=== PATIENT | male | born 1940 | race Caucasian/White ===

== ENCOUNTER → 2017-04-22 | Outpatient (REF) | payer OTHER ==
[~2017-04-22] MED LIST: ALDA50TA2 PO; FENO160T10 PO; FERR325T3 PO; GLIM2TA PO; ISOS30TA4 PO; LEVE1INJ5 SC; NADO20TA PO; NITR0.4S14 SL; OMEP20CA3 PO; PRAV40TA2 PO; RANO5TAB PO; TRUL10IN SC; VALS1TAB46 PO
[2017-04-22 14:05] LABS: PERCENT SATURATION 9.7 % (19.7-37.4)
== END ==
LOC: M LAB REF 13:33
PROVIDERS: ATTEND Internal Medicine Medical Oncology
DX: C91.10 Chronic lymphocytic leukemia of B-cell type not having achieved remission (principal)

== ENCOUNTER → 2017-05-08 | Outpatient (CLI) | payer OTHER ==
--- NOTE | 2017-05-08 14:38 | REP ---
ABDOMINAL ULTRASOUND WITH DUPLEX DOPPLER EVALUATION OF PORTAL VASCULATURE: Real-time sonographic evaluation of right upper quadrant performed. The gallbladder wall is upper limits of normal in thickness at 4 mm. No gallstones are seen. There is no evidence of intrahepatic or extrahepatic biliary dilatation, common bile duct measuring 3 mm in diameter. The liver demonstrates diffuse heterogeneous echotexture. No gross liver or pancreatic mass is seen. The pancreas is not optimally seen due to overlying bowel gas. Main portable vein is slightly dilated at 15 mm. The spleen is somewhat enlarged measuring 19.7 cm in length. Kidneys appear normal in size and echotexture, right kidney measuring 10.2 x 5.3 x 5.7 cm and the left kidney 11.2 x 64 x 5.1 cm. There is no hydronephrosis bilaterally. There is a cyst in the upper pole of the right kidney measuring 2.8 x 2.0 x 1.6 cm and a cyst in the lower pole of the left kidney 1.6 x 1.8 x 2.2 cm. The visualized abdominal aorta is normal in caliber with no aneurysm. There is a small amount of fluid in an umbilical hernia, which is not reducible. Real-time ultrasound evaluation and duplex Doppler interrogation of the portal vasculature is performed. There is normal direction of flow in the portal vasculature. Peak velocity in the splenic vein is 13.2 cm/s, and in the main portal vein 16.2 cm/s. Peak systolic velocity in the main hepatic artery is 37.2 cm/s. There are monophasic waveforms seen in the hepatic veins. There is no evidence of portal vein thrombosis. IMPRESSION: Diffusely coarsened echotexture of the liver suggests cirrhosis with no definite liver mass identified. The main portal vein is mildly dilated at 15 mm suggesting some degree of portal hypertension. There is normal direction of flow in the portal veins. Moderate splenomegaly. Umbilical hernia contains fluid and is not reducible. Signed by Quan Lopez MD 05/08/2017 05:12 P
== END ==
LOC: M RAD 10:37
PROVIDERS: ATTEND Internal Medicine Gastroenterology
DX: D64.9 Anemia, unspecified (principal)

== ENCOUNTER 2017-06-29 06:46 | Outpatient (CLI) | payer OTHER ==
[~2017-06-29] VITALS: Ht 170.2 cm; Wt 102.1 kg
[2017-06-29] MEDS ORDERED: NS 1,000 ML IV ONE (07:15)
[2017-06-29] MEDS ORDERED: D5W/0.45% SODIUM CHLORIDE 1,000 ML IV SCH (08:00)
[2017-06-29] MEDS ORDERED: LIDOCAINE 2% INJ 100 MG/5 ML SDV (FOR ANES.) As Ordered ONE (08:29)
[2017-06-29] MEDS ORDERED: PROPOFOL 200 MG/20 ML VIAL As Ordered ONE ×3 (08:29→08:46)
[2017-06-29] MEDS ORDERED: ePHEDrine SULFATE 25 MG/5 ML(5MG/ML) SYRINGE As Ordered ONE ×2 (08:29→09:22)
--- NOTE | 2017-06-29 09:13 | ROOR ---
Patient Name: Sg Gerardo Procedure Date: 06/29/2017 8:14 AM Date of : 1940 Age: 76 Room: [facility] Gender: Male Note Status: Finalized Procedure: Upper GI endoscopy Indications: Iron deficiency anemia Providers: Mando Black MD Referring MD: NICK NORRIS MD Requesting Provider: Medicines: Monitored Anesthesia Care Complications: No immediate complications. Procedure: Pre-Anesthesia Assessment: - Prior to the procedure, a History and Physical was performed, and patient medications and allergies were reviewed. The patient is competent. The risks and benefits of the procedure and the sedation options and risks were discussed with the patient. All questions were answered and informed consent was obtained. Patient identification and proposed procedure were verified by the physician, the nurse and the system integration engineer in the procedure room. Airway Examination: normal oropharyngeal airway and neck mobility. Respiratory Examination: clear to auscultation. CV Examination: normal. Prophylactic Antibiotics: The patient does not require prophylactic antibiotics. Prior Anticoagulants: The patient has taken ibuprofen, last dose was 6 days prior to procedure. ASA Grade Assessment: III - A patient with severe systemic disease. After reviewing the risks and benefits, the patient was deemed in satisfactory condition to undergo the procedure. The anesthesia plan was to use monitored anesthesia care (MAC). Immediately prior to administration of medications, the patient was re-assessed for adequacy to receive sedatives. The heart rate, respiratory rate, oxygen saturations, blood pressure, adequacy of pulmonary ventilation, and response to care were monitored throughout the procedure. The physical status of the patient was re-assessed after the procedure. The Endoscope was introduced through the mouth, and advanced to the second part of duodenum. The upper GI endoscopy was accomplished without difficulty. The patient tolerated the procedure well. Findings: Three columns of non-bleeding grade II varices were found in the lower third of the esophagus,. No stigmata of recent bleeding were evident and no red selene signs were present. Multiple 10 mm sessile polyps with no bleeding and no stigmata of recent bleeding were found in the gastric antrum. The polyp was removed with a cold biopsy forceps. Resection and retrieval were complete. Verification of patient identification for the specimen was done by the physician and nurse using the patient's name, date and medical record number. Estimated blood loss was minimal. Severe portal hypertensive gastropathy was found in the entire examined stomach. Biopsies were taken with a cold forceps for Helicobacter pylori testing. Multiple 8 mm sessile polyps with no bleeding were found in the duodenal bulb. The polyp was removed with a cold biopsy forceps. Resection and retrieval were complete. The second portion of the duodenum was normal. Biopsies for histology were taken with a cold forceps for evaluation of celiac disease. Impression: - Non-bleeding grade II esophageal varices. - Multiple gastric polyps. Resected and retrieved. - Portal hypertensive gastropathy. Biopsied. - Multiple duodenal polyps. Resected and retrieved. - Normal second portion of the duodenum. Biopsied. Recommendation: - Patient has a contact number available for emergencies. The signs and symptoms of potential delayed complications were discussed with the patient. Return to normal activities tomorrow. Written discharge instructions were provided to the patient. - Resume previous diet. - Continue present medications. - Await pathology results. - Continue present medications. - Cipro (ciprofloxacin) 500 mg PO BID for 5 days. - To start on beta natanael with dosage titrated by the heart rate in clinic visit. - Return to GI clinic as previously scheduled on 07/08/2017 at 11:00 AM. - Return to primary care physician. Mando Black MD Mando Black MD 06/29/2017 9:13:38 AM This report has been signed electronically. Number of Addenda: 0 Note Initiated On: 06/29/2017 8:14 AM Estimated Blood Loss: Estimated blood loss was minimal.
--- NOTE | 2017-06-29 09:19 | ROOR ---
Patient Name: Sg Gerardo Procedure Date: 06/29/2017 8:16 AM Date of : 1940 Age: 76 Room: [facility] Gender: Male Note Status: Finalized Procedure: Colonoscopy Indications: Iron deficiency anemia Providers: Mando Black MD Referring MD: NICK NORRIS MD Requesting Provider: Medicines: Monitored Anesthesia Care Complications: No immediate complications. Procedure: Pre-Anesthesia Assessment: - Prior to the procedure, a History and Physical was performed, and patient medications and allergies were reviewed. The patient is competent. The risks and benefits of the procedure and the sedation options and risks were discussed with the patient. All questions were answered and informed consent was obtained. Patient identification and proposed procedure were verified by the physician, the nurse and the fire equipment inspector in the procedure room. Mental Status Examination: alert and oriented. Airway Examination: normal oropharyngeal airway and neck mobility. Respiratory Examination: clear to auscultation. CV Examination: normal. Prophylactic Antibiotics: The patient does not require prophylactic antibiotics. Prior Anticoagulants: The patient has taken ibuprofen, last dose was 1 day prior to procedure. ASA Grade Assessment: III - A patient with severe systemic disease. After reviewing the risks and benefits, the patient was deemed in satisfactory condition to undergo the procedure. The anesthesia plan was to use monitored anesthesia care (MAC). Immediately prior to administration of medications, the patient was re-assessed for adequacy to receive sedatives. The heart rate, respiratory rate, oxygen saturations, blood pressure, adequacy of pulmonary ventilation, and response to care were monitored throughout the procedure. The physical status of the patient was re-assessed after the procedure. The Colonoscope was introduced through the anus and advanced to the terminal ileum, with identification of the appendiceal orifice and IC valve. The colonoscopy was performed without difficulty. The patient tolerated the procedure well. The quality of the bowel preparation was good. The terminal ileum, ileocecal valve, appendiceal orifice, and rectum were photographed. Scope insertion time was 4 minutes. Scope withdrawal time was 12 minutes. The total duration of the procedure was 16 minutes. Findings: The perianal and digital rectal examinations were normal. The terminal ileum appeared normal. A diffuse area of granular mucosa was found in the cecum. Biopsies were taken with a cold forceps for histology. Verification of patient identification for the specimen was done by the physician and nurse using the patient's name, date and medical record number. Estimated blood loss was minimal. Three sessile polyps were found in the ascending colon. The polyps were 4 to 5 mm in size. These polyps were removed with a jumbo cold forceps. Resection and retrieval were complete. Three sessile polyps were found in the transverse colon. The polyps were 4 to 6 mm in size. These polyps were removed with a jumbo cold forceps. Resection and retrieval were complete. A 3 mm polyp was found in the sigmoid colon. The polyp was sessile. The polyp was removed with a jumbo cold forceps. Resection and retrieval were complete. Anal papilla(e) were hypertrophied. Non-bleeding external and internal hemorrhoids were found during retroflexion. The hemorrhoids were large. Impression: - The examined portion of the ileum was normal. - Granularity in the cecum. Biopsied. - Three 4 to 5 mm polyps in the ascending colon, removed with a jumbo cold forceps. Resected and retrieved. - Three 4 to 6 mm polyps in the transverse colon, removed with a jumbo cold forceps. Resected and retrieved. - One 3 mm polyp in the sigmoid colon, removed with a jumbo cold forceps. Resected and retrieved. - Anal papilla(e) were hypertrophied. - Non-bleeding external and internal hemorrhoids. Recommendation: - Patient has a contact number available for emergencies. The signs and symptoms of potential delayed complications were discussed with the patient. Return to normal activities tomorrow. Written discharge instructions were provided to the patient. - Resume previous diet. - Continue present medications. - Await pathology results. - Repeat colonoscopy in 1 year for surveillance based on pathology results. - Return to GI clinic as previously scheduled on 07/08/2017 at 11:00 AM. - Return to primary care physician. Mando Black MD Mando Black MD 06/29/2017 9:19:19 AM This report has been signed electronically. Number of Addenda: 0 Note Initiated On: 06/29/2017 8:16 AM Estimated Blood Loss: Estimated blood loss was minimal.
[2017-06-29 09:35] VITALS: BP 108/78
== END 2017-06-29 09:51 | disposition home or self-care (01) ==
LOC: M OPP 06:46
PROVIDERS: ATTEND Internal Medicine Gastroenterology
DX: D50.9 Iron deficiency anemia, unspecified (principal); K62.5 Hemorrhage of anus and rectum; D12.2 Benign neoplasm of ascending colon; D12.3 Benign neoplasm of transverse colon; D12.5 Benign neoplasm of sigmoid colon; K64.4 Residual hemorrhoidal skin tags; K64.8 Other hemorrhoids; K63.89 Other specified diseases of intestine; I85.00 Esophageal varices without bleeding; K31.7 Polyp of stomach and duodenum; K76.6 Portal hypertension; K31.89 Other diseases of stomach and duodenum; I25.10 Atherosclerotic heart disease of native coronary artery without angina pectoris; Z95.5 Presence of coronary angioplasty implant and graft; I25.2 Old myocardial infarction; I10 Essential (primary) hypertension; E78.5 Hyperlipidemia, unspecified; E11.9 Type 2 diabetes mellitus without complications; Z85.6 Personal history of leukemia; Z92.21 Personal history of antineoplastic chemotherapy; M19.90 Unspecified osteoarthritis, unspecified site; F03.90 Unspecified dementia, unspecified severity, without behavioral disturbance, psychotic disturbance, mood disturbance, and anxiety; Z87.891 Personal history of nicotine dependence; Z79.4 Long term (current) use of insulin; Z79.899 Other long term (current) drug therapy

== ENCOUNTER → 2017-08-24 | Outpatient (CLI) | payer OTHER ==
[2017-08-24 13:46] LABS: MEAN CORPUSCULAR HEMOGLOBIN 31.5 pg (27.0-33.0); MEAN CORPUSCULAR HGB CONC 32.7 g/dl (32.0-36.5); MEAN CORPUSCULAR VOLUME 96.2 fl (80.0-96.0); RED CELL DISTRIBUTION WIDTH 14.5 % (11.5-14.5)
[2017-08-24 13:58] LABS: ADD MANUAL DIFFER YES; BLASTS POS FLAG; DIFF SLIDE NUMBER 281; PLATELET COUNT, AUTOMATED 84 10^3/uL (150-450); PLT CLUMPS? POS FLAG; POS COUNT POS FLAG; POSITIVE DIFF POS FLAG; POSITIVE MORPH POS FLAG; WBC SCAT POS FLAG; WHITE BLOOD COUNT 109.1 10^3/uL (4.0-10.0)
[2017-08-24 14:15] LABS: CREATININE FOR GFR 2.04 MG/DL (0.70-1.30); PERCENT SATURATION 22.1 % (19.7-50.0)
[2017-08-24 14:18] LABS: POIKILOCYTOSIS 1+
[2017-08-24 14:19] LABS: PLATELET F 81
== END ==
LOC: M LAB 13:04
PROVIDERS: ATTEND Internal Medicine Gastroenterology
DX: D50.9 Iron deficiency anemia, unspecified (principal)

== ENCOUNTER → 2017-10-22 | Outpatient (REF) | payer OTHER ==
[2017-10-22 14:54] LABS: FERRITIN 23 NG/ML (26-388); IRON (FE) 101 UG/DL (65-175); PERCENT SATURATION 21.6 % (19.7-50.0); TOTAL IRON BINDING CAPACITY 467 UG/DL (250-450)
== END ==
LOC: M LAB REF 13:57
DX: C91.10 Chronic lymphocytic leukemia of B-cell type not having achieved remission (principal)
CPT/HCPCS: 83550

== ENCOUNTER → 2018-02-05 | Outpatient (REF) | payer OTHER ==
[2018-02-05 12:20] LABS: INR 1.22; PROTHROMBIN TIME 15.6 SECONDS (12.4-14.5)
[2018-02-05 12:21] LABS: PARTIAL THROMBOPLASTIN TIME 30.2 SECONDS (26.8-37.9)
== END ==
LOC: M LAB REF 11:59
DX: C91.90 Lymphoid leukemia, unspecified not having achieved remission (principal); K76.9 Liver disease, unspecified
CPT/HCPCS: 85610

== ENCOUNTER → 2018-04-06 | Outpatient (CLI) | payer OTHER | LOC: M RADPRO 11:01 | DX: R18.8 Other ascites (principal); Z95.5 Presence of coronary angioplasty implant and graft; Z79.4 Long term (current) use of insulin; Z79.899 Other long term (current) drug therapy | CPT/HCPCS: 49083 ==

== ENCOUNTER → 2018-04-16 | Outpatient (CLI) | payer OTHER ==
[2018-04-16 09:44] LABS: TYPE AND SCREEN 1
[2018-04-16 14:01] LABS: BF MONONUCLEAR CELL % 88.5 % (0-0); BF POLYMORPHONUCLEAR CELL % 11.5 % (0-0); RBC BODY FLUID 5 10^3/uL (<2); WBC BODY FLUID 356 /uL (0-10)
[2018-04-16 14:05] LABS: APPEARANCE, BODY FLUID CLEAR (CLEAR); ASCITES FL COLOR YELLOW (COLORLESS); BF DIFF IF INDICATED? YES (NO); SOURCE, BODY FLUID ASCITES
[2018-04-16 14:22] LABS: SOURCE, BODY FLUID ALBUMIN ASCITES; SOURCE, BODY FLUID TOT PROTEIN ASCITES; TOTAL PROTEIN, BODY FLUID 1.4 G/DL (NOT ESTABLISHED)
[2018-04-16 15:50] LABS: LDH, BODY FLUID 57 U/L (NOT ESTABLISHED); SOURCE, BODY FLUID LDH ASCITES
== END ==
LOC: M RADPRO 12:07
DX: K76.6 Portal hypertension (principal); Z79.4 Long term (current) use of insulin; Z79.899 Other long term (current) drug therapy
CPT/HCPCS: 49083

== ENCOUNTER → 2018-06-22 | Outpatient (CLI) | payer OTHER ==
[2018-06-22 13:17] LABS: TYPE AND SCREEN 1
[2018-06-22 14:09] LABS: TYPE AND SCREEN 1
[2018-06-22 14:41] LABS: BF MONONUCLEAR CELL % 84.1 % (0-0); BF POLYMORPHONUCLEAR CELL % 15.9 % (0-0); RBC BODY FLUID 16 10^3/uL (<2); WBC BODY FLUID 1251 /uL (0-10)
[2018-06-22 14:43] LABS: APPEARANCE, BODY FLUID HAZY (CLEAR); ASCITES FL COLOR AMBER (COLORLESS); SOURCE, BODY FLUID ASCITES
[2018-06-22 14:44] LABS: BF DIFF IF INDICATED? YES (NO)
[2018-06-22 15:19] LABS: SOURCE, BODY FLUID ALBUMIN ASCITES; SOURCE, BODY FLUID TOT PROTEIN ASCITES
== END ==
LOC: M RADPRO 12:24
DX: K74.69 Other cirrhosis of liver (principal); I12.9 Hypertensive chronic kidney disease with stage 1 through stage 4 chronic kidney disease, or unspecified chronic kidney disease; E78.00 Pure hypercholesterolemia, unspecified; I25.2 Old myocardial infarction; N18.3 Chronic kidney disease, stage 3 (moderate); E11.9 Type 2 diabetes mellitus without complications; Z85.6 Personal history of leukemia; Z79.4 Long term (current) use of insulin; Z79.899 Other long term (current) drug therapy; Z87.891 Personal history of nicotine dependence
CPT/HCPCS: 49083

== ENCOUNTER → 2018-07-16 | Outpatient (CLI) | payer OTHER ==
[2018-07-16 14:07] LABS: TYPE AND SCREEN 1
[2018-07-16 14:17] LABS: HEMATOCRIT 34.1 % (42.0-52.0); HEMOGLOBIN 10.9 g/dl (13.5-17.5)
[2018-07-16 14:35] LABS: SODIUM,RANDOM URINE < 10 MEQ/L
[2018-07-16 14:38] LABS: ANION GAP 9 MEQ/L (8-16); BLOOD UREA NITROGEN 39 MG/DL (7-18); CARBON DIOXIDE LEVEL 28 MEQ/L (21-32); CHLORIDE LEVEL 103 MEQ/L (98-107); CREATININE FOR GFR 2.08 MG/DL (0.70-1.30); GLOMERULAR FILTRATION RATE 33.1 (>42); GLUCOSE, FASTING 195 MG/DL (70-100); POTASSIUM SERUM 4.1 MEQ/L (3.5-5.1); SODIUM LEVEL 140 MEQ/L (136-145)
[2018-07-16 14:52] LABS: MEAN CORPUSCULAR VOLUME 96.9 fl (80.0-96.0); PLATELET COUNT, AUTOMATED 132 10^3/uL (150-450); RED BLOOD COUNT 3.52 10^6/uL (4.30-6.10)
[2018-07-16 14:58] LABS: POS COUNT POS FLAG; POSITIVE DIFF POS FLAG; POSITIVE MORPH POS FLAG
[2018-07-16 14:59] LABS: ADD MANUAL DIFFER YES; DIFF SLIDE NUMBER 274; WHITE BLOOD COUNT 100.3 10^3/uL (4.0-10.0)
[2018-07-16 15:12] LABS: ATYPICAL LYMPH 70 % (0-5); BASOPHILS 1 % (0-4); LYMPHOCYTES 18 % (16-52); MONOCYTES 4 % (0-8); NEUTROPHILS 7 % (35-75); PLATELET ESTIMATE DECREASED (NORMAL)
[2018-07-16 15:13] LABS: SMUDGE CELLS 1+
[2018-07-16 15:14] LABS: SOURCE, BODY FLUID ALBUMIN ASCITES; SOURCE, BODY FLUID TOT PROTEIN ASCITES; TOTAL PROTEIN, BODY FLUID 1.6 G/DL (NOT ESTABLISHED)
[2018-07-16 15:30] LABS: APPEARANCE, BODY FLUID HAZY (CLEAR); ASCITES FL COLOR AMBER (COLORLESS); RBC BODY FLUID 866 10^3/uL (<2); SOURCE, BODY FLUID ASCITES; WBC BODY FLUID 902 /uL (0-10)
[2018-07-16 15:31] LABS: BF DIFF IF INDICATED? YES (NO)
== END ==
LOC: M RADPRO 12:50
DX: K74.69 Other cirrhosis of liver (principal); Z79.899 Other long term (current) drug therapy
CPT/HCPCS: 49083

== ENCOUNTER → 2018-07-29 | Outpatient (CLI) | payer OTHER ==
[2018-07-29 09:55] LABS: TYPE AND SCREEN 1
== END ==
LOC: M RADPRO 10:56
DX: K74.69 Other cirrhosis of liver (principal); Z79.899 Other long term (current) drug therapy
CPT/HCPCS: 49083

== ENCOUNTER → 2018-08-05 | Outpatient (CLI) | payer OTHER ==
[2018-08-05 09:45] LABS: TYPE AND SCREEN 1
[2018-08-05 11:59] LABS: TYPE AND SCREEN 1
== END ==
LOC: M RADPRO 11:30
DX: K74.69 Other cirrhosis of liver (principal)
CPT/HCPCS: 49083

== ENCOUNTER → 2018-08-12 | Outpatient (CLI) | payer OTHER ==
[2018-08-12 08:41] LABS: TYPE AND SCREEN 1
[2018-08-12 10:52] LABS: TYPE AND SCREEN 1
[2018-08-18 09:11] LABS: TYPE AND SCREEN 1
== END ==
LOC: M RADPRO 09:54
DX: K74.69 Other cirrhosis of liver (principal); Z79.899 Other long term (current) drug therapy
CPT/HCPCS: 49083

== ENCOUNTER → 2018-08-18 | Outpatient (CLI) | payer OTHER | LOC: M RADPRO 10:00 | DX: K74.69 Other cirrhosis of liver (principal); Z79.899 Other long term (current) drug therapy | CPT/HCPCS: 49083 ==

== ENCOUNTER → 2018-08-23 | Outpatient (CLI) | payer OTHER ==
[2018-08-23 14:09] LABS: ALBUMIN 3.2 GM/DL (3.2-5.2); ALBUMIN/GLOBULIN RATIO 1.45 (1.00-1.93); ALKALINE PHOSPHATASE 78 U/L (45-117); ALT/SGPT 18 U/L (12-78); ANION GAP 5 MEQ/L (8-16); AST/SGOT 30 U/L (7-37); BILIRUBIN,DIRECT 0.6 MG/DL (0.0-0.2); BILIRUBIN,TOTAL 1.2 MG/DL (0.2-1.0); BLOOD UREA NITROGEN 40 MG/DL (7-18); CALCIUM LEVEL 8.5 MG/DL (8.8-10.2); CARBON DIOXIDE LEVEL 29 MEQ/L (21-32); CHLORIDE LEVEL 105 MEQ/L (98-107); CREATININE FOR GFR 2.57 MG/DL (0.70-1.30); GLUCOSE, FASTING 111 MG/DL (70-100); MAGNESIUM LEVEL 2.5 MG/DL (1.8-2.4); PHOSPHORUS LEVEL 3.7 MG/DL (2.5-4.9); POTASSIUM SERUM 4.4 MEQ/L (3.5-5.1); SODIUM LEVEL 139 MEQ/L (136-145); TOTAL PROTEIN 5.4 GM/DL (6.4-8.2)
== END ==
LOC: M LAB 13:02
DX: K74.69 Other cirrhosis of liver (principal); R18.8 Other ascites
CPT/HCPCS: 83735

== ENCOUNTER → 2018-09-03 | Outpatient (CLI) | payer OTHER ==
[2018-09-03 09:45] LABS: TYPE AND SCREEN 1
[2018-09-03 13:32] LABS: ANION GAP 5 MEQ/L (8-16); BLOOD UREA NITROGEN 38 MG/DL (7-18); CALCIUM LEVEL 8.6 MG/DL (8.8-10.2); CARBON DIOXIDE LEVEL 29 MEQ/L (21-32); CHLORIDE LEVEL 106 MEQ/L (98-107); CREATININE FOR GFR 2.25 MG/DL (0.70-1.30); GLOMERULAR FILTRATION RATE 30.3 (>42); GLUCOSE, FASTING 139 MG/DL (70-100); POTASSIUM SERUM 4.6 MEQ/L (3.5-5.1); SODIUM LEVEL 140 MEQ/L (136-145)
== END ==
LOC: M RADPRO 12:31
DX: K74.69 Other cirrhosis of liver (principal); R18.8 Other ascites; Z79.899 Other long term (current) drug therapy
CPT/HCPCS: 49083

== ENCOUNTER → 2018-09-15 | Outpatient (CLI) | payer OTHER ==
[~2018-09-15] MED LIST changes: +BACI50OI TOP; +CIPR500T3 PO; +GLIM1TAB PO; +LACT10SO29 PO; +LASI20TA PO; +LISI10TA4; +PROP20TA72; +SPIR50TA4
[2018-09-15 10:03] LABS: HEMATOCRIT 32.1 % (42.0-52.0); MEAN CORPUSCULAR HEMOGLOBIN 29.5 pg (27.0-33.0); MEAN CORPUSCULAR HGB CONC 31.2 g/dl (32.0-36.5); MEAN CORPUSCULAR VOLUME 94.7 fl (80.0-96.0); PLATELET COUNT, AUTOMATED 158 10^3/uL (150-450); RED BLOOD COUNT 3.39 10^6/uL (4.30-6.10)
[2018-09-15 10:16] LABS: INR 1.29; PROTHROMBIN TIME 16.3 SECONDS (12.1-14.4)
[2018-09-15 10:17] LABS: PARTIAL THROMBOPLASTIN TIME 30.8 SECONDS (25.4-37.6)
[2018-09-15 11:20] LABS: ATYPICAL LYMPH 20 % (0-5); LYMPHOCYTES 69 % (16-52); NEUTROPHILS 11 % (35-75); PLATELET ESTIMATE NORMAL (NORMAL)
[2018-09-15 11:21] LABS: WHITE BLOOD COUNT 142.6 10^3/uL (4.0-10.0)
[2018-09-15 12:05] LABS: ALBUMIN 2.5 GM/DL (3.2-5.2); BILIRUBIN,DIRECT 0.8 MG/DL (0.0-0.2); BILIRUBIN,TOTAL 1.4 MG/DL (0.2-1.0); CREATININE FOR GFR 3.99 MG/DL (0.70-1.30); FOLATE 6.3 NG/ML; GLOMERULAR FILTRATION RATE 15.6 (>42); PERCENT SATURATION 35.4 % (19.7-50.0); POTASSIUM SERUM 4.8 MEQ/L (3.5-5.1)
--- NOTE | 2018-09-15 20:33 | REP ---
Ultrasound-guided paracentesis The procedure was performed under the direct supervision of Dr. Centeno. The risks and benefits of the procedure were explained to the patient and informed consent was obtained. The largest pocket of fluid was localized in the left flank using ultrasound guidance. The skin was prepped and draped in a sterile fashion. 1% lidocaine was used as a local anesthetic. An 8-Palauan multi side-hole catheter was inserted using trocar technique. 10,500 ml of minal colored fluid was withdrawn and discarded. The patient tolerated the procedure well and there were no immediate complications. After the appropriate amount of monitored convalescence the patient was discharged from the department. Reviewed by CHELSEA Miranda 09/15/2018 04:34 P Electronically Signed by Natan Centeno MD 09/15/2018 08:23 P
== END ==
LOC: M LAB 09:18
PROVIDERS: ATTEND Internal Medicine Gastroenterology
DX: R18.8 Other ascites (principal); K74.69 Other cirrhosis of liver; Z79.899 Other long term (current) drug therapy
CPT/HCPCS: 36415; 49083; 80048; 80076; 82607; 82728; 82746; 83550; 85025; 85610; 85730; P9047

== ENCOUNTER 2018-09-24 14:27 | Emergency (ER) | payer OTHER ==
[~2018-09-24] VITALS: Ht 170.2 cm; Wt 94.0 kg
[~2018-09-24 14:27] MED LIST changes: -BACI50OI TOP; -LACT10SO29 PO; -LASI20TA PO; +LASI20TA3 PO; -LISI10TA4; -PROP20TA72; -SPIR50TA4
[2018-09-24] MEDS ORDERED: LACT10SO29 PO (15:15)
[2018-09-24] MEDS ORDERED: SPIR50TA4 (15:15)
[2018-09-24] MEDS ORDERED: LISI10TA4 (15:15)
[2018-09-24] MEDS ORDERED: PROP20TA72 (15:15)
[2018-09-24] MEDS ORDERED: BACI50OI TOP (15:54)
[2018-09-24 16:58] VITALS: BP 109/53
[2018-10-07] MEDS ORDERED: KION15SU PO (11:37)
== END 2018-09-24 17:00 | disposition home or self-care (01) ==
LOC: M ED 14:27
DX: R18.8 Other ascites (principal); K42.0 Umbilical hernia with obstruction, without gangrene; E11.9 Type 2 diabetes mellitus without complications; I12.9 Hypertensive chronic kidney disease with stage 1 through stage 4 chronic kidney disease, or unspecified chronic kidney disease; N18.3 Chronic kidney disease, stage 3 (moderate); C91.10 Chronic lymphocytic leukemia of B-cell type not having achieved remission; I25.10 Atherosclerotic heart disease of native coronary artery without angina pectoris; E78.5 Hyperlipidemia, unspecified; Z79.899 Other long term (current) drug therapy
CPT/HCPCS: 36415; 49083; 80048; 87070; 87077; 87186; 87205; 89051; 96365; 99283; P9047

== ENCOUNTER → 2018-10-01 | Outpatient (CLI) | payer MEDICARE, OTHER ==
[~2018-10-01] MED LIST changes: +BACI50OI TOP; +KION15SU PO; +LACT10SO29 PO; +LISI10TA4; +PROP20TA72; +SPIR50TA4
[2018-10-01 14:13] LABS: CALCIUM LEVEL 8.4 MG/DL (8.8-10.2); CREATININE FOR GFR 4.35 MG/DL (0.70-1.30); GLOMERULAR FILTRATION RATE 14.1 (>42); POTASSIUM SERUM 6.1 MEQ/L (3.5-5.1)
== END ==
LOC: M LAB 12:58
PROVIDERS: ATTEND Internal Medicine Gastroenterology
DX: K74.69 Other cirrhosis of liver (principal); R18.8 Other ascites; Z79.899 Other long term (current) drug therapy
CPT/HCPCS: 36415; 49083; 80048; P9047

== ENCOUNTER → 2018-10-15 | Outpatient (CLI) | payer MEDICARE ==
[2018-10-15 11:41] LABS: CALCIUM LEVEL 8.1 MG/DL (8.8-10.2); CREATININE FOR GFR 2.03 MG/DL (0.70-1.30); GLOMERULAR FILTRATION RATE 34.1 (>42); POTASSIUM SERUM 5.1 MEQ/L (3.5-5.1)
--- NOTE | 2018-10-15 19:56 | REP ---
Ultrasound-guided paracentesis The procedure was performed under the direct supervision of Dr. Centeno. The risks and benefits of the procedure were explained to the patient and informed consent was obtained. The largest pocket of fluid was localized in the left lower quadrant using ultrasound guidance. The skin was prepped and draped in a sterile fashion. 1% lidocaine was used as a local anesthetic. An 8-Kosovan multi side-hole catheter was inserted using trocar technique. 6200 ml of minal colored fluid was withdrawn and discarded. The patient tolerated the procedure well and there were no immediate complications. After the appropriate amount of monitored convalescence the patient was discharged from the department. Reviewed by CHELSEA Miranda 10/15/2018 05:05 P Electronically Signed by Natan Centeno MD 10/15/2018 07:47 P
== END ==
LOC: M RADPRO 10:32
PROVIDERS: ATTEND Internal Medicine Gastroenterology
DX: R18.8 Other ascites (principal); K74.69 Other cirrhosis of liver
CPT/HCPCS: 80048; 96365; P9047

== ENCOUNTER → 2018-10-21 | Outpatient (CLI) | payer MEDICARE ==
[2018-10-21 16:14] LABS: CALCIUM LEVEL 8.2 MG/DL (8.8-10.2); CREATININE FOR GFR 2.04 MG/DL (0.70-1.30); GLOMERULAR FILTRATION RATE 33.9 (>42); POTASSIUM SERUM 5.2 MEQ/L (3.5-5.1)
--- NOTE | 2018-10-22 10:52 | REP ---
Ultrasound-guided paracentesis The procedure was performed under the direct supervision of Dr. Centeno. The risks and benefits of the procedure were explained to the patient and informed consent was obtained. The largest pocket of fluid was localized in the right lower quadrant using ultrasound guidance. The skin was prepped and draped in a sterile fashion. 1% lidocaine was used as a local anesthetic. An 8-Japanese multi side-hole catheter was inserted using trocar technique. 4750 ml of light red colored fluid was withdrawn and discarded. The patient tolerated the procedure well and there were no immediate complications. After the appropriate amount of monitored convalescence the patient was discharged from the department. Reviewed by CHELSEA Miranda 10/22/2018 10:17 A Electronically Signed by Natan Centeno MD 10/22/2018 10:43 A
== END ==
LOC: M RADPRO 11:57
PROVIDERS: ATTEND Internal Medicine Gastroenterology
DX: K74.69 Other cirrhosis of liver (principal); R18.8 Other ascites; Z79.899 Other long term (current) drug therapy
CPT/HCPCS: 49083; 80048; P9047

== ENCOUNTER → 2018-10-29 | Outpatient (CLI) | payer MEDICARE ==
[2018-10-29 14:05] LABS: CALCIUM LEVEL 8.1 MG/DL (8.8-10.2); CREATININE FOR GFR 2.02 MG/DL (0.70-1.30); GLOMERULAR FILTRATION RATE 34.3 (>42); POTASSIUM SERUM 4.8 MEQ/L (3.5-5.1)
--- NOTE | 2018-10-29 16:14 | REP ---
Ultrasound-guided paracentesis The procedure was performed under the direct supervision of Dr. Lopez. The risks and benefits of the procedure were explained to the patient and informed consent was obtained. The largest pocket of fluid was localized in the left flank using ultrasound guidance. The skin was prepped and draped in a sterile fashion. 1% lidocaine was used as a local anesthetic. An 8-Faroese multi side-hole catheter was inserted using trocar technique. 5700 ml of [place] colored fluid was withdrawn and discarded. The patient tolerated the procedure well and there were no immediate complications. After the appropriate amount of monitored convalescence the patient was discharged from the department. Reviewed by CHELSEA Miranda 10/29/2018 03:42 P Electronically Signed by Quan Lopez MD 10/29/2018 04:05 P
== END ==
LOC: M RADPRO 12:33
PROVIDERS: ATTEND Internal Medicine Gastroenterology
DX: K74.69 Other cirrhosis of liver (principal); R18.8 Other ascites
CPT/HCPCS: 49083; 80048; 96365; P9047

== ENCOUNTER → 2018-11-05 | Outpatient (CLI) | payer MEDICARE ==
[2018-11-05 14:12] LABS: CREATININE FOR GFR 2.14 MG/DL (0.70-1.30); GLOMERULAR FILTRATION RATE 32.1 (>42); POTASSIUM SERUM 5.4 MEQ/L (3.5-5.1)
--- NOTE | 2018-11-05 17:59 | REP ---
Ultrasound-guided paracentesis The procedure was performed under the direct supervision of Dr. Centeno. The risks and benefits of the procedure were explained to the patient and informed consent was obtained. The largest pocket of fluid was localized in the left flank using ultrasound guidance. The skin was prepped and draped in a sterile fashion. 1% lidocaine was used as a local anesthetic. An 8-Maldivian multi side-hole catheter was inserted using trocar technique. 5800 ml of minal colored fluid was withdrawn and discarded. The patient tolerated the procedure well and there were no immediate complications. After the appropriate amount of monitored convalescence the patient was discharged from the department. Reviewed by CHELSEA Miranda 11/05/2018 03:53 P Electronically Signed by Natan Centeno MD 11/05/2018 05:49 P
== END ==
LOC: M RADPRO 12:57
PROVIDERS: ATTEND Internal Medicine Gastroenterology
DX: K74.69 Other cirrhosis of liver (principal); R18.8 Other ascites; Z79.84 Long term (current) use of oral hypoglycemic drugs; Z79.899 Other long term (current) drug therapy
CPT/HCPCS: 49083; 80048; 96365; P9047

== ENCOUNTER → 2018-11-12 | Outpatient (CLI) | payer MEDICARE ==
[2018-11-12 13:24] LABS: CALCIUM LEVEL 7.9 MG/DL (8.8-10.2); CREATININE FOR GFR 1.8 MG/DL (0.70-1.30); GLOMERULAR FILTRATION RATE 39.1 (>42); POTASSIUM SERUM 4.3 MEQ/L (3.5-5.1)
--- NOTE | 2018-11-12 16:32 | REP ---
Ultrasound-guided paracentesis The procedure was performed under the direct supervision of Dr. Lopez. The risks and benefits of the procedure were explained to the patient and informed consent was obtained. The largest pocket of fluid was localized in the right flank using ultrasound guidance. The skin was prepped and draped in a sterile fashion. 1% lidocaine was used as a local anesthetic. An 8-Wolof multi side-hole catheter was inserted using trocar technique. 4500 ml of low viscosity red colored fluid was withdrawn and discarded. The patient tolerated the procedure well and there were no immediate complications. After the appropriate amount of monitored convalescence the patient was discharged from the department. Reviewed by CHELSEA Miranda 11/12/2018 03:31 P Electronically Signed by Quan Lopez MD 11/12/2018 04:23 P
== END ==
LOC: M RADPRO 12:38
PROVIDERS: ATTEND Internal Medicine Gastroenterology
DX: K74.69 Other cirrhosis of liver (principal); R18.8 Other ascites; Z79.899 Other long term (current) drug therapy
CPT/HCPCS: 49083; 80048; 96365; P9047

== ENCOUNTER → 2018-11-19 | Outpatient (CLI) | payer MEDICARE ==
[2018-11-19 13:58] LABS: CALCIUM LEVEL 8.4 MG/DL (8.8-10.2); CREATININE FOR GFR 1.96 MG/DL (0.70-1.30); GLOMERULAR FILTRATION RATE 35.5 (>42); POTASSIUM SERUM 4.6 MEQ/L (3.5-5.1)
--- NOTE | 2018-12-01 10:30 | REP ---
ULTRASOUND-GUIDED PARACENTESIS, 11/19/2018: CLINICAL HISTORY: Ascites. TECHNIQUE: Ultrasound survey of the abdomen was done prospectively in this patient for paracentesis. FINDINGS: Procedure was discussed with the patient along with the diagnostic benefits, risks of bleeding, infection, pain, bowel injury, and unsuccessful procedure as possibilities,. He understands, and consent was obtained. We performed a formal time-out procedure. Under ultrasound guidance, the skin was marked in the right lateral midabdomen for the patient. A standard ChloraPrep scrub was performed; infiltration of 4 mL of 1% lidocaine with a 25-gauge needle was utilized. A simple skin colette made with a #11 blade at the site of needle insertion. Thereafter, a paracentesis catheter was advanced over the 14-gauge needle which was inserted with trocar technique. Abundant fluid obtained and the catheter advanced over the needle. A total of 6 liters of straw-colored fluid was obtained. No gross evidence for blood or cloudy/debris-laden fluid. Patient tolerated the procedure well. After appropriate monitored convalescence, patient was discharged home. THOMAS
== END ==
LOC: M RADPRO 12:59
PROVIDERS: ATTEND Internal Medicine Gastroenterology
DX: R18.8 Other ascites (principal); Z79.899 Other long term (current) drug therapy
CPT/HCPCS: 49083; 80048; 96365; P9047

== ENCOUNTER → 2018-11-29 | Outpatient (CLI) | payer MEDICARE ==
[~2018-11-29] MED LIST changes: -GLIM2TA PO; +GLIM2TAB29 PO; +LIDOCAINE 2% MDV 20 ML VIAL As Ordered ONE; -VALS1TAB46 PO; +VALS1TAB66 PO
--- NOTE | 2018-12-29 07:15 | REPIR ---
DATE OF PROCEDURE: 11/29/2018 ATTENDING SURGEON: Mirza Kessler MD ANESTHESIA ATTENDING: Dayna Pickard and Nellie Corey PREOPERATIVE DIAGNOSES: Cirrhosis. Chronic lymphocytic leukemia. Refractory ascites. Diabetes mellitus. Coronary artery disease. Hypertension. POSTOPERATIVE DIAGNOSES: Cirrhosis. Chronic lymphocytic leukemia. Refractory ascites. Diabetes mellitus. Coronary artery disease. Hypertension. PROCEDURE: Ultrasound-guided right peritoneal cavity cannulation. Fluoroscopic guided right peritoneal cavity drainage catheter placement. INDICATION: Patient is a 38-year-old male with refractory ascites who will undergo placement of a peritoneal catheter for continued drainage of ascites avoiding the need for recurrent paracentesis. The risks, benefits and alternative treatment options were discussed with the patient. ANESTHESIA: Local with 20 mL of 2% lidocaine. FLUORO TIME: 0.1 minutes. CONTRAST: None. COMPLICATIONS: None. DRAINS: None. SPECIMENS: None. IMPLANTS: Peritoneal catheter placement with use of a PleurX peritoneal drainage catheter. PROCEDURE: Patient was taken to the angiography suite, placed supine on the angiography room table and then prepped and draped in a standard surgical fashion. Ultrasound was used to evaluate the abdominal cavity with fluid pockets noted. The abdominal cavity was entered using an entry needle under ultrasound guidance. The wire was advanced through the needle, which then used to dilate and place the catheter in the peroneal cavity. The catheter was tunneled and brought out through a separate puncture wound. The patient then underwent drainage of approximately 4.5 liters of ascites after which the catheter was capped. Dressings were then applied. The patient tolerated the procedure well. All instrument, sponge, needle counts were correct at the end of the case. There were no complications. Dr. Kessler was present for and directed the entire case. The patient was transferred to the holding area and subsequently discharged in stable condition.
== END | disposition home or self-care (01) ==
LOC: M IRPRO 09:26
PROVIDERS: ATTEND Internal Medicine Gastroenterology
DX: R18.8 Other ascites (principal); K74.60 Unspecified cirrhosis of liver; C91.Z0 Other lymphoid leukemia not having achieved remission; E11.9 Type 2 diabetes mellitus without complications; I25.10 Atherosclerotic heart disease of native coronary artery without angina pectoris; I10 Essential (primary) hypertension
CPT/HCPCS: 49418; C1729